=== PATIENT | female | born 1950 | race Caucasian/White ===

== ENCOUNTER → 2023-01-11 | Outpatient (CLI) | payer OTHER ==
[~2023-01-11] MED LIST: AZIT250 PO; HYDACE5 PO; SUMA25 PO
== END | disposition home or self-care (01) ==
LOC: LAB SHORT 15:35 → LAB 15:35 → LAB FUT 01-08 15:25
PROVIDERS: Internal Medicine Endocrinology, Diabetes & Metabolism
DX: E21.0 Primary hyperparathyroidism (principal)
CPT/HCPCS: 81050; 82340

== ENCOUNTER 2024-01-13 08:57 | Day surgery (SDC) | payer OTHER ==
[~2024-01-13] VITALS: Ht 167.6 cm; Wt 50.2 kg
[~2024-01-13 08:57] MED LIST changes: +Balanced Salt Epinephrine Irrigation Solution 500 mL IR SCH; +Lidocaine HCl/Pf 1% 5 ML VIAL XX SCH; +Moxifloxacin HCL 0.5 MG/0.1 ML 0.4MLSYR RIGHTEYE SCH; +NS 500 ML IV ONE; +PHENYLEPHRINE\\TROPICAMIDE\\TETRACAINE OPHTHALMIC DILATING SOLN RIGHTEYE PRN; +Povidone-Iodine 450 DROP/30 ML Solution RIGHTEYE SCH; +Triamcinolone Inj Susp 40 MG / ML 1ML Vial INJ SCH
[2024-01-13] MEDS ORDERED: NS 500 ML IV ONE (09:15)
[2024-01-13] MEDS ORDERED: Seroquel Xr50 MG PO (09:21)
[2024-01-13] MEDS ORDERED: RISP2 PO (09:22)
[2024-01-13] MEDS ORDERED: TRAZ50 PO (09:22)
[2024-01-13] MEDS ORDERED: Midazolam HCl 1MG / ML 2ML Vial ONE (09:37)
[2024-01-13] MEDS ORDERED: FentaNYL Citrate 50 MCG/ML 2 ML Injection ONE (09:37)
[2024-01-13 10:23] VITALS: BP 120/77
== END 2024-01-13 10:41 | disposition home or self-care (01) ==
LOC: ORSCSDS 08:57
PROVIDERS: Ophthalmology
PROC: 08RJ3JZ Replacement of Right Lens with Synthetic Substitute, Percutaneous Approach (ICD-10-PCS; principal; 2024-01-13 10:30)
DX: H25.811 Combined forms of age-related cataract, right eye (principal); H52.201 Unspecified astigmatism, right eye; F41.9 Anxiety disorder, unspecified; Z79.899 Other long term (current) drug therapy
CPT/HCPCS: J2250; J3010; J7040; V2632

== ENCOUNTER 2024-09-27 19:02 | Inpatient (IN) | payer OTHER ==
[~2024-09-27] VITALS: Ht 167.6 cm; Wt 54.8 kg
[~2024-09-27 19:02] MED LIST changes: +ACYC400; +ALEN70; -Balanced Salt Epinephrine Irrigation Solution 500 mL IR SCH; +FLONASE ALLERG9.9 M2; -Lidocaine HCl/Pf 1% 5 ML VIAL XX SCH; -Moxifloxacin HCL 0.5 MG/0.1 ML 0.4MLSYR RIGHTEYE SCH; -NS 500 ML IV ONE; -PHENYLEPHRINE\\TROPICAMIDE\\TETRACAINE OPHTHALMIC DILATING SOLN RIGHTEYE PRN; -Povidone-Iodine 450 DROP/30 ML Solution RIGHTEYE SCH; +RISP2 PO; +Seroquel Xr50 MG PO; +TRAZ50 PO; -Triamcinolone Inj Susp 40 MG / ML 1ML Vial INJ SCH
[2024-09-27 21:11] LABS: BASOPHILS ABSOLUTE AUTO 0.04 K/mm3 (0.00-0.23); BASOPHILS PERCENT AUTO 1 % (0-2); EOSINOPHILS ABSOLUTE AUTO 0.09 K/mm3 (0.00-0.68); EOSINOPHILS PERCENT AUTO 2 % (0-6); Hematocrit 31.8 % (33.0-51.0); Hemoglobin 11.2 g/dL (11.5-16.0); IMMATURE GRAN ABSOLUTE AUTO 0.01 K/mm3 (0.00-0.10); IMMATURE GRAN PERCENT AUTO 0 % (0-1); LYMPHOCYTES ABSOLUTE AUTO 1.57 K/mm3 (0.84-5.20); LYMPHOCYTES PERCENT AUTO 30 % (21-46); MONOCYTES ABSOLUTE AUTO 0.46 K/mm3 (0.16-1.47); MONOCYTES PERCENT AUTO 9 % (4-13); Mean Corpuscular HGB 32.6 pg (26.0-34.0); Mean Corpuscular HGB Conc 35.2 g/dL (31.5-36.5); Mean Corpuscular Volume 92 fL (80-100); Mean Platelet Volume 8.8 fL (9.1-12.4); NEUTROPHILS ABSOLUTE AUTO 2.99 K/mm3 (1.96-9.15); NEUTROPHILS PERCENT AUTO 58 % (41-73); Platelet Count 206 K/mm3 (150-400); RDW Coefficient Variation 11.9 % (11.7-14.2); RDW Standard Deviation 40.3 fL (35.1-46.3); Red Blood Cell Count 3.44 M/mm3 (3.80-5.20); White Blood Cell Count 5.16 K/mm3 (4.00-11.30)
[2024-09-27 21:56] LABS: Albumin, Blood 4.2 g/dL (3.4-5.0); Albumin/Globulin Ratio 1.5 (0.8-1.8); Bilirubin, Total 0.3 mg/dL (0.1-1.0); Calcium, Blood 13.6 mg/dL (8.5-10.1); Globulin, Blood 2.8 g/dL (2.2-4.0); Potassium, Blood 4.1 mmol/L (3.5-5.5)
[2024-09-27] MEDS ORDERED: NS 1,000 ML IV SCH (22:20)
[2024-09-27] MEDS ORDERED: Acetaminophen 325 MG TABLET PO PRN (23:25)
[2024-09-27] MEDS ORDERED: Ondansetron HCl 2 MG / ML 2ML Vial IV PRN (23:25)
[2024-09-28] MEDS ORDERED: NS 1,000 ML IV SCH
[2024-09-28] MEDS ORDERED: TraZODone HCl 100 MG Tab PO PRN (00:10)
[2024-09-28 06:33] VITALS: BP 162/105
[2024-09-28] MEDS ORDERED: LOSA25 PO (06:40)
[2024-09-28 07:10] LABS: BASOPHILS ABSOLUTE AUTO 0.03 K/mm3 (0.00-0.23); BASOPHILS PERCENT AUTO 1 % (0-2); EOSINOPHILS PERCENT AUTO 3 % (0-6); Hematocrit 35.1 % (33.0-51.0); Hemoglobin 12.1 g/dL (11.5-16.0); IMMATURE GRAN ABSOLUTE AUTO 0.02 K/mm3 (0.00-0.10); IMMATURE GRAN PERCENT AUTO 1 % (0-1); LYMPHOCYTES ABSOLUTE AUTO 1.27 K/mm3 (0.84-5.20); LYMPHOCYTES PERCENT AUTO 32 % (21-46); MONOCYTES ABSOLUTE AUTO 0.32 K/mm3 (0.16-1.47); MONOCYTES PERCENT AUTO 8 % (4-13); Mean Corpuscular HGB 31.8 pg (26.0-34.0); Mean Corpuscular HGB Conc 34.5 g/dL (31.5-36.5); Mean Corpuscular Volume 92 fL (80-100); Mean Platelet Volume 8.7 fL (9.1-12.4); NEUTROPHILS ABSOLUTE AUTO 2.22 K/mm3 (1.96-9.15); NEUTROPHILS PERCENT AUTO 56 % (41-73); Platelet Count 220 K/mm3 (150-400); RDW Coefficient Variation 11.9 % (11.7-14.2); RDW Standard Deviation 40.7 fL (35.1-46.3); White Blood Cell Count 3.96 K/mm3 (4.00-11.30)
--- NOTE | 2024-09-28 07:31 | NUR ---
ASSMPTION NOTE: THIS RN TO ASSUME CARE OF PATIENT.PATIENT IS SLEEPING, EASILY AROUSABLE. HAS CALL LIGHT WITHIN REACH & BED IN LOWEST POSITION.
[2024-09-28 07:46] LABS: Magnesium, Blood 2.1 mg/dL (1.6-2.4)
[2024-09-28 07:54] LABS: Albumin, Blood 4.7 g/dL (3.4-5.0); Albumin/Globulin Ratio 1.6 (0.8-1.8); Bilirubin, Total 0.4 mg/dL (0.1-1.0); Bun/Creatinine Ratio 15.8 (12.0-20.0); Calcium, Blood 13.2 mg/dL (8.5-10.1); Creatinine, Blood 0.89 mg/dL (0.40-1.00); Globulin, Blood 2.9 g/dL (2.2-4.0); Potassium, Blood 4.1 mmol/L (3.5-5.5); Total Protein, Blood 7.6 g/dL (6.4-8.2)
[2024-09-28 08:01] VITALS: BP 154/97
[2024-09-28] MEDS ORDERED: Cinacalcet HCL 30 MG Tab PO SCH ×2 (09:00→21:00)
[2024-09-28] MEDS ORDERED: Enoxaparin 40 MG/0.4 ML SYR SC SCH (09:00)
[2024-09-28] MEDS ORDERED: Lactated Ringer's 1,000 ML IV SCH (12:55)
[2024-09-28] MEDS ORDERED: Temazepam 15 MG Cap PO PRN (13:05)
[2024-09-28 15:46] LABS: Calcium, Blood 12.7 mg/dL (8.5-10.1); Creatinine, Blood 1.07 mg/dL (0.40-1.00); Potassium, Blood 4.3 mmol/L (3.5-5.5)
[2024-09-28 16:06] VITALS: BP 169/96
[2024-09-28 16:26] VITALS: BP 169/93
--- NOTE | 2024-09-28 16:37 | NUR ---
THIS RN CONTACTED MD TO NOTIFY OF ELEVATED BP, TO PLACE SOME NEW ORDERS
--- NOTE | 2024-09-28 16:47 | NUR ---
SHIFT SUMMARY: PATIENT IS ALERT AND ORIENTED X4 & COOPERATIVE WITH HER CARE. IS ABLE TO MAKE NEEDS KNOWN & USES CALL LIGHT APPROPRIATELY. PATIENT IS SATTING 92% ON ROOM AIR, EVEN & UNLABORED RESPIRATIONS AT REST. PATIENT IS GETTING FLUIDS PER EMAR AND PLAN WILL BE TO STAY OVERNIGHT AND CONTINUE TO WORK ON LOWERING THE CALCIUM LEVELS. PATIENT AWARE AND COOPERATIVE WITH THE PLAN. IS INDEPENDENT IN THE ROOM, STEADY ON HER FEET. HOME REC IS COMPLETE AND MD WAS NOTIFIED, SOME MEDICATIONS WERE ORDERED TO HELP PATIENT SLEEP TONIGHT. PATIENT HAD A VISITOR THROUGHOUT THE SHIFT. DENYING ANY NEEDS AT THIS TIME, HAS CALL LIGHT WITHIN REACH & BED IN LOWEST POSITION.
[2024-09-28] MEDS ORDERED: Carvedilol 6.25 MG Tab PO SCH (17:00)
[2024-09-28] MEDS ORDERED: Sodium Chloride 0.45% 1,000 ML IV SCH (17:30)
[2024-09-28 20:02] VITALS: BP 158/90
[2024-09-28] MEDS ORDERED: RisperiDONE 1 MG Tab PO SCH (21:00)
[2024-09-28] MEDS ORDERED: QUEtiapine Fumarate 100 MG Tab PO SCH (21:00)
[2024-09-29 03:45] VITALS: BP 148/91
[2024-09-29 04:43] LABS: Bun/Creatinine Ratio 17.9 (12.0-20.0); Calcium, Blood 11.9 mg/dL (8.5-10.1); Creatinine, Blood 0.78 mg/dL (0.40-1.00); Potassium, Blood 4.4 mmol/L (3.5-5.5)
--- NOTE | 2024-09-29 05:49 | NUR ---
SHIFT SUMMARY PATIENT A&OX4 AND MILDLY ANXIOUS. PATIENT ON RA. MEDICATED PER EMAR FOR HEADACHE. CALCIUM LEVELS TRENDING DOWN. VITALS ARE STABLE. WILL CONTINUE TO MONITOR. CALL LIGHT IN REACH. NO ACUTE CONDITIONS NOTED OVERNIGHT.
--- NOTE | 2024-09-29 06:38 | NUR ---
PHYSICIAN COMMUNICATION CONTACTED DR RACHEL TO REPORT THAT THE PATIENT IS COMPLAINING OF A MIGRAINE WITH TYLENOL BEING INEFFECTIVE. DR RACHEL ORDERED A ONE TIME DOSE OF 25 MG IMITREX.
[2024-09-29] MEDS ORDERED: SUMAtriptan Succinate 25 MG Tab PO ONE (06:40)
[2024-09-29 07:43] VITALS: BP 163/98
[2024-09-29] MEDS ORDERED: ACET325 PO (11:02)
[2024-09-29] MEDS ORDERED: CINA30 PO (11:04)
[2024-09-29] MEDS ORDERED: CARV6.25 PO (11:04)
[2024-09-29 12:09] VITALS: BP 142/83
--- NOTE | 2024-09-29 12:37 | NUR ---
DAISCHARGE SUMMARY DISCHARGE PACKET GONE OVER WITH PT AT 1200. PT DISCHARGED AT 1230 VIA WHEELCHAIR AND ON RA. PT ABLE TO DRESS AND TRANSFER SELF TO AND FROM WHEELCHAIR ON HER OWN. PT PERSONAL BELONGING AND DISCHARGE PACKET WITH PT AT TIME OF DISCHARGE. PT ABLE T CALL FOR A TAXI SERVICE.
== END 2024-09-29 12:30 | disposition home or self-care (01) | DRG 641 ==
LOC: ER 19:02 → ERHOLD 19:03 → PCU 19:03
PROVIDERS: Internal Medicine; Student in an Organized Health Care Education/Training Program; ADMIT Student in an Organized Health Care Education/Training Program
DX: E83.52 Hypercalcemia (principal); E87.1 Hypo-osmolality and hyponatremia; D64.9 Anemia, unspecified; I10 Essential (primary) hypertension; Z98.890 Other specified postprocedural states; Z88.0 Allergy status to penicillin; Z88.5 Allergy status to narcotic agent; Z88.2 Allergy status to sulfonamides; Z79.899 Other long term (current) drug therapy
CPT/HCPCS: 36415; 80048; 80053; 82306; 82330; 83735; 83970; 84100; 84443; 85025; 93005; 93010; 96360; 96361; 99284-25; A9270; G0378; J7030; J7120